=== PATIENT | female | born 1965 ===

== ENCOUNTER 2017-02-05 09:34 | Emergency (ER) | payer OTHER ==
[2017-02-05 09:42] VITALS: BP 123/82; PULSE 80; RESP 17; TEMP 97.9; O2SAT 100
[2017-02-05] MEDS ORDERED: Naproxen 550 mg Tab PO STA (09:52)
--- NOTE | 2017-02-05 09:55 | C.PDOC ---
History Of Present Illness 51 year old female presents to the ER with complaints of nonproductive cough, fever/chills, headache, and runny nose for the past 2 days. Patient reports taking tylenol with minimal relief. Patient denies sore throat, chest pain, SOB , abdominal pain, nausea/vomiting/diarrhgea, sick contacts. Time Seen by Provider: 02/05/17 09:46 Chief Complaint (Nursing): Cough, Cold, Congestion History Per: Patient History/Exam Limitations: no limitations Onset/Duration Of Symptoms: Days (2) Current Symptoms Are (Timing): Still Present Location Of Pain: Headache Sick Contacts (Context): None Associated Symptoms: Fever, Chills, Cough, Sinus Drainage. denies: Sore Throat , Sputum Severity: Mild Past Medical History Reviewed: Historical Data, Nursing Documentation, Vital Signs Vital Signs: Last Vital Signs Temp 97.9 F 02/05/17 09:40 Pulse 80 02/05/17 09:40 Resp 17 02/05/17 09:40 BP 123/82 02/05/17 09:40 Pulse Ox 100 02/05/17 10:42 - Medical History PMH: No Chronic Diseases Surgical History: No Surg Hx Family History: States: No Known Family Hx - Social History Hx Alcohol Use: No Hx Substance Use: No - Immunization History Hx Tetanus Toxoid Vaccination: No Hx Influenza Vaccination: No Hx Pneumococcal Vaccination: No Review Of Systems Except As Marked, All Systems Reviewed And Found Negative. Constitutional: Positive for: Fever, Chills ENT: Positive for: Nose Discharge Cardiovascular: Negative for: Chest Pain, Palpitations Respiratory: Positive for: Cough. Negative for: Shortness of Breath Gastrointestinal: Negative for: Nausea, Vomiting, Abdominal Pain, Diarrhea Neurological: Positive for: Headache Physical Exam - Physical Exam Appears: Well, Non-toxic, No Acute Distress Skin: Normal Color, Warm, Dry Head: Normacephalic Nose: Discharge (rhinorrhea ) Oral Mucosa: Moist Tongue: No Erythema Throat: Normal, No Erythema, No Exudate Neck: Supple Cardiovascular: Rhythm Regular Respiratory: Normal Breath Sounds, No Rales, No Rhonchi, No Wheezing, Other ( Coughing occasionally.) Gastrointestinal/Abdominal: Normal Exam, Bowel Sounds, Soft, No Tenderness Neurological/Psych: Oriented x3 ED Course And Treatment O2 Sat by Pulse Oximetry: 100 (Room air) Pulse Ox Interpretation: Normal Progress Note: Patient given PO tessalon, Naprosyn and Sudafed in ED. She was given Rxs for same, and instructed to follow up with PMD/clinic in 1-2 days. She understands she should return to ED if symptoms worsen. Reevaluation Time: 10:15 Reassessment Condition: Improved Disposition Counseled Patient/Family Regarding: Studies Performed, Diagnosis, Need For Followup, Rx Given - Disposition Referrals: [facility] [Outside] Disposition: HOME/ ROUTINE Disposition Time: 10:15 Condition: STABLE Additional Instructions: SEGUIMIENTO CON STAFFORD DOCTOR / CLNICA EN 1-2 TA USE LOS MEDICAMENTOS QUE GODFREY NECESARIOS BEBER MU[facility] LQU[facility] VUELVA A [facility] Prescriptions: Benzonatate [Tessalon Perles] 100 mg PO BID PRN #15 sgl PRN Reason: Cough Naproxen [Naprosyn Tab] 375 mg PO BID PRN #15 tab PRN Reason: pain Pseudoephedrine [Sudafed] 60 mg PO Q6 PRN #12 tab PRN Reason: Nasal Congestion Instructions: Viral Syndrome (ED) Print Language: SINHALA - POA Present On Arrival: None - Clinical Impression Clinical Impression: Viral disease, Upper respiratory infection - Scribe Statement The provider has reviewed the documentation as recorded by the Scriboscar Gamble All medical record entries made by the Scribe were at my direction and personally dictated by me. I have reviewed the chart and agree that the record accurately reflects my personal performance of the history, physical exam, medical decision making, and the department course for this patient. I have also personally directed, reviewed, and agree with the discharge instructions and disposition.
[2017-02-05] MEDS ORDERED: Naproxen 550 mg Tab PO ONE (09:59)
== END 2017-02-05 10:20 | disposition home or self-care (01) ==
LOC: C.ER 09:34
DX: J06.9 Acute upper respiratory infection, unspecified (principal)